=== PATIENT | female | born 1985 | race African-American/Black ===

== ENCOUNTER 2017-05-16 15:42 | Inpatient (IN) | payer OTHER ==
[~2017-05-16] VITALS: Ht 167.6 cm; Wt 57.1 kg
[~2017-05-16 15:42] MED LIST: ASPIR 8181 M1 PO; ASPIRIN81 M2; AUGMENTIN875 MG; CAMILA0.35 MG PO; CELLCEPT500 MG PO; CIPROFLOXACIN500 M1 PO; COLACE100 MG; COLACE100 MG PO; ERGOCALCIF50000 UNIT PO; FAMOTIDINE20 MG PO; HYDROMORPHONE HC2 MG PO; HYDROXYCHLOROQ200 MG PO; IBUPROFEN800 MG PO; IMURAN50 MG PO; LO-DOSE ASPIRIN81 M1 PO; LYRICA75 MG PO; MAALOX ADVANCE355 ML PO; MACROBID100 MG PO; MAGNESIUM250 MG PO; MYCOPHENOLATE500 MG PO; PEPCID20 MG PO; PERCOCET 5/31 TABLET PO; PLAQUENIL200 MG PO; PREDNISONE10 M2 PO; PREDNISONE20 MG PO; PREDNISONE5 MG PO; PRENATAL TABLE1 EAC3 PO; PRENATAL VITAM1 EAC3 PO; PREVACID30 M1 PO; PREVACID30 MG PO; PRILOSEC10 MG PO; PROAIR RESPICL90 MCG IH; RAYOS5 MG PO; ROXICODONE5 MG PO; TEMOVATE 0.05%30 GM TP; TERAZOL 3 CREAM20 GM VG; VALIUM5 MG PO; VITAMIN B12-FO1 EACH PO; VITAMIN D250000 UNIT PO; ZITHROMAX Z-PA250 MG PO
[2017-05-16 18:05] LABS: ADD MIUA? YES; BILIRUBIN NEGATIVE; BLOOD NEGATIVE; COLOR AMBER ((YELLOW)); GLUCOSE (STRIP) NEGATIVE; KETONES NEGATIVE; LEUKOCYTES NEGATIVE; NITRITE POSITIVE; PROTEIN (STRIP) 100; UROBILINOGEN 0.2 MG/DL (0.2-1.0)
[2017-05-16 18:13] LABS: BACTERIA 1+ /HPF; CALCIUM OXALATE CRYSTALS 2+ /HPF; EPITHELIAL CELLS RARE /HPF; MUCUS TRACE /LPF; RED BLOOD CELLS 0-5 /HPF (0-5); WHITE BLOOD CELLS 0-5 /HPF (0-5)
[2017-05-16 18:16] LABS: CHLORIDE 104 mEq/L (99-109); POTASSIUM 2.9 mEq/L (3.7-5.4); SODIUM 139 mEq/L (136-147)
[2017-05-16 18:18] LABS: GLUCOSE 67 mg/dL (70-99)
[2017-05-16 18:20] LABS: ANION GAP 13 MEQ/L (2-14); TOTAL BILIRUBIN 0.3 mg/dL (0.0-1.0)
[2017-05-16 18:22] LABS: ALKALINE PHOSPHATASE 39 IU/L (3-129); GFR ESTIMATE (CALCULATED) > 59 mL/min/
[2017-05-16 18:23] LABS: HEMATOCRIT 33.1 % (36.0-46.0); MCH 28.2 PG (29.0-34.0); MCHC 30.8 G/DL (30.0-36.0); MCV 91.4 FL (83-99); MEAN PLAT.VOLUME 10.7 uM^3 (9.5-12.4); PLATELET COUNT 131 K/uL (156-360); RBC DIS.WIDTH-CV 11.9 % (11.8-14.6); RBC DIS.WIDTH-SD 40.1 % (39-53); RED BLOOD COUNT 3.62 M/uL (3.80-5.20); UREA NITROGEN (BUN) 8 mg/dL (9-23); WHITE BLOOD COUNT 1.3 K/uL (4.1-10.2)
[2017-05-16 18:24] LABS: DIRECT BILIRUBIN 0.1 mg/dL (0.0-0.3)
[2017-05-16 18:32] LABS: QUANTITATIVE HCG < 4.0 MIU/ML
[2017-05-16 18:43] LABS: INTERNAL CONTROL VALID? YES; MONOSPOT (MONONUCLEOSIS SEROL) NEGATIVE
[2017-05-16 19:13] LABS: ABS NEUTROPHIL COUNT 0.8; ANISOCYTOSIS 1+; EOSINOPHIL ABS CT 0; GIANT PLATELETS 1+; HYPOCHROMASIA 1+; INSTRUMENT ABS NEUTROPHIL CT 0.8 K/uL; LYMPHOCYTES 23.4 % (15.0-45.0); MACROCYTES 1+; OVALOCYTES 2+; PLAT.SUFFICIENCY ADEQUATE; POIKILOCYTOSIS 1+; SEG.NEUTROPHILS 34.3 % (46.0-76.0)
[2017-05-16] MEDS ORDERED: SERTRALINE HCL50 MG PO (23:32)
[2017-05-16] MEDS ORDERED: PREDNISONE5 MG PO (23:33)
[2017-05-16] MEDS ORDERED: DEXILANT60 MG PO (23:35)
[2017-05-16] MEDS ORDERED: TRAZODONE HCL50 MG PO (23:36)
[2017-05-17 00:10] LABS: C-REACTIVE PROTEIN 21.1 MG/L (0-10); GLOBULINS 4.1 G/DL (2.3-3.5)
[2017-05-17 00:13] VITALS: BP 104/61
[2017-05-17 03:08] LABS: C3 COMPLEMENT 84 MG/DL (58-170); C4 COMPLEMENT 19 MG/DL (10-40)
[2017-05-17 07:44] VITALS: BP 109/75
[2017-05-17 09:26] LABS: HEMATOCRIT 32.2 % (36.0-46.0); MCHC 30.7 G/DL (30.0-36.0); MCV 91.2 FL (83-99); MEAN PLAT.VOLUME 12.5 uM^3 (9.5-12.4); PLATELET COUNT 132 K/uL (156-360); RBC DIS.WIDTH-CV 12.2 % (11.8-14.6); RBC DIS.WIDTH-SD 40.6 % (39-53); RED BLOOD COUNT 3.53 M/uL (3.80-5.20)
[2017-05-17 09:27] LABS: WHITE BLOOD COUNT 1.2 K/uL (4.1-10.2)
[2017-05-17 09:37] LABS: ALKALINE PHOSPHATASE 29 IU/L (3-129); ANION GAP 8 MEQ/L (2-14); CHLORIDE 111 MEQ/L (99-109); GFR ESTIMATE (CALCULATED) > 59 mL/min/; SAMPLE HEMOLYSIS CHECK 0; SAMPLE ICTERIC CHECK 0; SAMPLE LIPEMIA CHECK 0; SODIUM 139 MEQ/L (136-147); TOTAL BILIRUBIN 0.3 MG/DL (0.0-1.0); UREA NITROGEN (BUN) 7 mg/dL (9-23)
[2017-05-17 09:45] LABS: GLUCOSE 121 mg/dL (70-99); POTASSIUM 4.1 MEQ/L (3.7-5.4)
[2017-05-17 09:53] LABS: ANTI-EPSTEIN-BARR NUCLEAR AG POSITIVE; ANTI-EPSTEIN-BARR VCA IGG POSITIVE; ANTI-EPSTEIN-BARR VCA IGM NEGATIVE
[2017-05-17 11:15] LABS: URINE TOTAL PROTEIN 37 MG/DL (0-10)
[2017-05-17 15:33] VITALS: BP 132/83
[2017-05-18] VITALS: BP 137/92
[2017-05-18 08:44] VITALS: BP 134/84
[2017-05-18 11:39] VITALS: BP 147/92
[2017-05-18 14:26] LABS: HEMATOCRIT 29.4 % (36.0-46.0); MCH 28.6 PG (29.0-34.0); MCV 92.5 FL (83-99); PLATELET COUNT 137 K/uL (156-360); RBC DIS.WIDTH-CV 12.3 % (11.8-14.6); RBC DIS.WIDTH-SD 41.8 % (39-53); RED BLOOD COUNT 3.18 M/uL (3.80-5.20); WHITE BLOOD COUNT 16.9 K/uL (4.1-10.2)
[2017-05-18 15:04] LABS: ANION GAP 10 MEQ/L (2-14); CHLORIDE 111 MEQ/L (99-109); GFR ESTIMATE (CALCULATED) > 59 mL/min/; GLUCOSE 148 mg/dL (70-99); POTASSIUM 3.3 MEQ/L (3.7-5.4); SAMPLE HEMOLYSIS CHECK 0; SAMPLE ICTERIC CHECK 0; SAMPLE LIPEMIA CHECK 0; SODIUM 140 MEQ/L (136-147); UREA NITROGEN (BUN) 7 mg/dL (9-23)
[2017-05-18 15:54] LABS: ABS NEUTROPHIL COUNT 16.3; ANISOCYTOSIS 2+; BAND NEUTROPHILS 35.4 % (0-8.0); BURR CELLS 2+; EOSINOPHIL ABS CT 0; HYPOCHROMASIA 2+; INSTRUMENT ABS NEUTROPHIL CT 14.1 K/uL; MACROCYTES 2+; MICROCYTOSIS 1+; OVALOCYTES 2+; PLATELET CLUMPS PRESENT - PLATELET COUNT APPEARS ADQ.; POIKILOCYTOSIS 2+; POLYCHROMASIA 1+
[2017-05-18 15:55] LABS: LYMPHOCYTES 1.8 % (15.0-45.0)
[2017-05-18 16:47] VITALS: BP 142/88
[2017-05-18 20:02] VITALS: BP 139/92
[2017-05-18 23:30] VITALS: BP 169/92
[2017-05-19 04:01] VITALS: BP 157/94
[2017-05-19 06:46] LABS: HEMATOCRIT 28.6 % (36.0-46.0); MCH 28.3 PG (29.0-34.0); MCHC 31.1 G/DL (30.0-36.0); MCV 90.8 FL (83-99); PLATELET COUNT 149 K/uL (156-360); RBC DIS.WIDTH-CV 12.5 % (11.8-14.6); RBC DIS.WIDTH-SD 41.4 % (39-53); RED BLOOD COUNT 3.15 M/uL (3.80-5.20); WHITE BLOOD COUNT 19.8 K/uL (4.1-10.2)
[2017-05-19 07:17] LABS: ALKALINE PHOSPHATASE 42 IU/L (3-129); ANION GAP 8 MEQ/L (2-14); CHLORIDE 109 MEQ/L (99-109); GFR ESTIMATE (CALCULATED) > 59 mL/min/; POTASSIUM 3.4 MEQ/L (3.7-5.4); SAMPLE HEMOLYSIS CHECK 0; SAMPLE ICTERIC CHECK 0; SAMPLE LIPEMIA CHECK 0; SODIUM 140 MEQ/L (136-147); UREA NITROGEN (BUN) 8 mg/dL (9-23)
[2017-05-19 07:26] LABS: GLUCOSE 103 mg/dL (70-99); TOTAL BILIRUBIN 0.2 MG/DL (0.0-1.0)
[2017-05-19 07:57] VITALS: BP 152/88
[2017-05-19 08:20] LABS: ABS NEUTROPHIL COUNT 18.8; ANISOCYTOSIS 1+; EOSINOPHIL ABS CT 0; INSTRUMENT ABS NEUTROPHIL CT 15.4 K/uL; LYMPHOCYTES 1.7 % (15.0-45.0); MACROCYTES 1+; OVALOCYTES 2+; PLAT.SUFFICIENCY INCREASED; POIKILOCYTOSIS 2+
[2017-05-19 08:21] LABS: BAND NEUTROPHILS 13.6 % (0-8.0); SEG.NEUTROPHILS 81.3 % (46.0-76.0)
[2017-05-19 12:07] VITALS: BP 136/88
[2017-05-19 16:44] VITALS: BP 137/80
[2017-05-19 19:42] VITALS: BP 146/75
[2017-05-19 19:53] LABS: ALBUMIN 2.85 G/DL (3.6-4.9); ALBUMIN PERCENT 42.6 % (49.3-67.1); ALPHA-1 GLOBULIN 0.34 G/DL (0.15-0.40); ALPHA-2 GLOBULIN 0.42 G/DL (0.45-0.85); ALPHA-2 PERCENT 6.3 % (6.2-11.6); BETA PERCENT 14.9 % (8.9-15.8); GAMMA PERCENT 31.2 % (8.6-18.6)
[2017-05-19 23:56] VITALS: BP 166/93
[2017-05-20 04:01] VITALS: BP 156/82
[2017-05-20 08:43] LABS: HEMATOCRIT 29.7 % (36.0-46.0); MCH 29.2 PG (29.0-34.0); MCHC 31.6 G/DL (30.0-36.0); MCV 92.2 FL (83-99); MEAN PLAT.VOLUME 12.2 uM^3 (9.5-12.4); NRBC (%) 0.2 /100 WBC (0-0); PLATELET COUNT 127 K/uL (156-360); RBC DIS.WIDTH-CV 12.9 % (11.8-14.6); RBC DIS.WIDTH-SD 42.4 % (39-53); RED BLOOD COUNT 3.22 M/uL (3.80-5.20); WHITE BLOOD COUNT 19.3 K/uL (4.1-10.2)
[2017-05-20 08:45] VITALS: BP 163/87
[2017-05-20 09:04] LABS: ANION GAP 9 MEQ/L (2-14); CHLORIDE 106 MEQ/L (99-109); GFR ESTIMATE (CALCULATED) > 59 mL/min/; GLUCOSE 108 mg/dL (70-99); POTASSIUM 3.4 MEQ/L (3.7-5.4); SAMPLE HEMOLYSIS CHECK 0; SAMPLE ICTERIC CHECK 0; SAMPLE LIPEMIA CHECK 0; SODIUM 139 MEQ/L (136-147); UREA NITROGEN (BUN) 8 mg/dL (9-23)
[2017-05-20 09:14] LABS: ABS NEUTROPHIL COUNT 18.3; ANISOCYTOSIS 1+; ATYPICAL LYMPHOCYTE 0.9 %; BAND NEUTROPHILS 15.7 % (0-8.0); EOSINOPHIL ABS CT 0; INSTRUMENT ABS NEUTROPHIL CT 13.4 K/uL; LYMPHOCYTES 2.6 % (15.0-45.0); MACROCYTES 1+; OVALOCYTES 1+; PLAT.SUFFICIENCY DECREASED; POIKILOCYTOSIS 1+; SEG.NEUTROPHILS 79.1 % (46.0-76.0)
[2017-05-20 09:54] LABS: ALKALINE PHOSPHATASE 54 IU/L (3-129)
[2017-05-20 09:57] LABS: TOTAL BILIRUBIN 0.3 MG/DL (0.0-1.0)
[2017-05-20 10:12] LABS: TROP-I INTERPRETATION NEGATIVE; TROPONIN-I 0.04 ng/mL (0.0-0.30)
[2017-05-20 11:24] VITALS: BP 166/86
[2017-05-20 15:22] VITALS: BP 170/94
[2017-05-20 19:36] VITALS: BP 140/81
[2017-05-20 23:39] VITALS: BP 170/93
[2017-05-21 07:11] LABS: HEMATOCRIT 30.2 % (36.0-46.0); MCH 29.4 PG (29.0-34.0); MCHC 32.1 G/DL (30.0-36.0); MCV 91.5 FL (83-99); MEAN PLAT.VOLUME 11.8 uM^3 (9.5-12.4); NRBC (%) 0.3 /100 WBC (0-0); PLATELET COUNT 126 K/uL (156-360); RBC DIS.WIDTH-CV 12.9 % (11.8-14.6); RBC DIS.WIDTH-SD 42.8 % (39-53); WHITE BLOOD COUNT 17.7 K/uL (4.1-10.2)
[2017-05-21 07:31] VITALS: BP 169/85
[2017-05-21 07:37] LABS: ANION GAP 4 MEQ/L (2-14); CHLORIDE 107 MEQ/L (99-109); GFR ESTIMATE (CALCULATED) > 59 mL/min/; GLUCOSE 99 mg/dL (70-99); POTASSIUM 3.9 MEQ/L (3.7-5.4); SAMPLE HEMOLYSIS CHECK 0; SAMPLE ICTERIC CHECK 0; SAMPLE LIPEMIA CHECK 0; SODIUM 140 MEQ/L (136-147); UREA NITROGEN (BUN) 10 mg/dL (9-23)
[2017-05-21 11:31] VITALS: BP 120/78
[2017-05-21] MEDS ORDERED: MYCOSTATIN 100,60 ML PO (15:10)
[2017-05-21] MEDS ORDERED: CEFTIN250 MG PO (15:10)
[2017-05-21] MEDS ORDERED: DOCUSATE SODIU100 MG PO (15:11)
[2017-05-21] MEDS ORDERED: SUCRALFATE1 GM PO (15:13)
[2017-05-21 15:18] VITALS: BP 155/73
[2017-05-21] MEDS ORDERED: PREDNISONE10 MG PO (15:18)
[2017-05-21 19:44] VITALS: BP 157/98
[2017-05-21 23:49] VITALS: BP 153/92
[2017-05-22 03:32] VITALS: BP 161/100
[2017-05-22 03:45] VITALS: BP 158/80
[2017-05-22 08:25] VITALS: BP 174/103
[2017-05-22] MEDS ORDERED: ENDOCET 5-3251 EACH PO (09:19)
[2017-05-22 10:50] VITALS: BP 148/72
[2017-05-22 11:35] VITALS: BP 182/106
== END 2017-05-22 14:10 | disposition home or self-care (01) | DRG 872 ==
LOC: EME 15:42 → 5SOUTH 22:13 → EDOF 22:13 → ENRESERV 22:16 → 5SOUTH 05-17 00:05
PROVIDERS: Hospitalist; Internal Medicine; Nurse Practitioner Adult Health; Physician Assistant
DX: A41.9 Sepsis, unspecified organism (principal); N39.0 Urinary tract infection, site not specified; D61.818 Other pancytopenia; M32.9 Systemic lupus erythematosus, unspecified; E87.6 Hypokalemia; I12.9 Hypertensive chronic kidney disease with stage 1 through stage 4 chronic kidney disease, or unspecified chronic kidney disease; G89.29 Other chronic pain; D70.9 Neutropenia, unspecified; K21.9 Gastro-esophageal reflux disease without esophagitis; N18.9 Chronic kidney disease, unspecified; K59.03 Drug induced constipation; Z96.611 Presence of right artificial shoulder joint; Z96.612 Presence of left artificial shoulder joint; R59.0 Localized enlarged lymph nodes; Z96.643 Presence of artificial hip joint, bilateral; I73.00 Raynaud's syndrome without gangrene; H40.9 Unspecified glaucoma; M79.7 Fibromyalgia; M81.0 Age-related osteoporosis without current pathological fracture; Z79.52 Long term (current) use of systemic steroids; Z79.891 Long term (current) use of opiate analgesic
CPT/HCPCS: 70490; 71010; 71020; 71250; 71275; 74174; 76705; 80048; 80053; 80076; 81003; 82330; 82607; 82746; 83605; 83735; 84165; 84166; 84484; 84702; 85025; 85027; 85379; 85651; 86140; 86160; 86308; 86664; 86665; 87040; 87077; 87086; 87186; 87651 90; 93005; 94640; 94640 76; 99281; 99285; J0696; J1447; J1644; J2405; J2920; J2930; J3010; J7030; J7050; J7500; S0028

== ENCOUNTER → 2017-06-09 | Outpatient (CLI) | payer OTHER ==
[~2017-06-09] MED LIST changes: +CEFTIN250 MG PO; +DEXILANT60 MG PO; +DOCUSATE SODIU100 MG PO; +ENDOCET 5-3251 EACH PO; +MYCOSTATIN 100,60 ML PO; +PREDNISONE10 MG PO; +SERTRALINE HCL50 MG PO; +SUCRALFATE1 GM PO; +TRAZODONE HCL50 MG PO
== END | disposition home or self-care (01) ==
LOC: NUC 07:47
DX: R10.11 Right upper quadrant pain (principal)
CPT/HCPCS: 78226; A9537

== ENCOUNTER 2018-02-28 12:27 | Outpatient (CLI) | payer OTHER ==
[2018-02-28 12:44] VITALS: BP 112/76
== END 2018-02-28 14:40 | disposition home or self-care (01) ==
LOC: LDRP-OP 12:27 → 2WEST 12:34 → LDRP-OP 04-21 13:27
DX: O34.219 Maternal care for unspecified type scar from previous cesarean delivery (principal); Z3A.37 37 weeks gestation of pregnancy; R10.9 Unspecified abdominal pain
CPT/HCPCS: 59025; G0378